=== PATIENT | female | born 1995 | race Two or more races ===

== ENCOUNTER 2020-06-18 13:36 | Emergency (ER) | payer MEDICAID ==
[~2020-06-18] VITALS: Ht 157.5 cm; Wt 42.0 kg
[2020-06-18 13:59] VITALS: BP 121/82
== END 2020-06-18 14:51 | disposition left against medical advice (07) ==
LOC: ER 13:36
DX: N93.9 Abnormal uterine and vaginal bleeding, unspecified (principal); Z53.21 Procedure and treatment not carried out due to patient leaving prior to being seen by health care provider